=== PATIENT | female | born 1960 | race Caucasian/White ===

== ENCOUNTER 2017-01-03 17:59 | Inpatient (IN) | payer BC ==
[~2017-01-03 17:59] MED LIST: ISOVUE-370 76%-LOCM 1 ML ONE
--- NOTE | 2017-01-03 18:48 | CT ---
CT BRAIN WITHOUT CONTRAST 01/03/17 HISTORY: Headache. COMPARISON: None. FINDINGS: There is abnormal edema within the cerebellum with mass effect upon the fourth ventricle. There is mi ld hydrocephalus. There is abnormal sulcal edema to the bifrontal lobes and right parietal lobe. The calvarium appears to be intact. IMPRESSION: Large volume vasogenic edema within the right cerebellum with early downward transforaminal herniatio n of the cerebellar tonsils with early hydrocephalus. There is also abnormal subcortical edema within the bifrontal lobes and right parietal lobe concerning for metastatic disease. MRI of brain with and without contrast recommended after consultation with neurosurgery. Code [facility] notified of findings via telephone, 6:40 p.m. POS: DOROTHY
[2017-01-03 19:01] LABS: #Basophils 0.1 thou/uL (0.0-0.2); #Eosinphils 0.2 thou/uL (0.0-0.7); #Lymphocytes 1.9 thou/uL (1.20-3.40); #Monocytes 0.4 thou/uL (0.11-0.59); #Neutrophils 3.7 thou/uL (1.40-6.50); %Basophils 1.5 % (0.0-1.0); %Eosinophils 3.8 % (0.0-10.0); %Lymphocytes 30.7 % (21.0-51.0); %Monocytes 5.8 % (0.0-10.0); Hematocrit 47.5 % (36.0-47.0); Mean Platelet Volume 8.9 fL (7.4-10.4); Red Blood Cell (RBC) Count 4.89 mill/uL (4.20-5.40); White Blood Cell (WBC) Count 6.3 thou/uL (4.8-10.8)
[2017-01-03 19:16] LABS: Anion Gap 13 mmol/L (10-20); BUN (Urea Nitrogen) 12 mg/dL (9.8-20.1); Calc. Creatinine Clearance 0 mL/min (70-130); Calcium 9.3 mg/dL (7.8-10.44); Carbon Dioxide 23 mmol/L (22-29); Chloride 110 mmol/L (98-107); Estimated GFR-MDRD 63
[2017-01-03] MEDS ORDERED: Dexamethasone 10 MG/ML VIAL ONE (19:49)
[2017-01-03] MEDS ORDERED: Ketorolac Tromethamine 30 MG/ML VIAL ONE (19:49)
[2017-01-03] MEDS ORDERED: Metoclopramide HCl 10 MG/2 ML VIAL ONE (19:49)
[2017-01-03] MEDS ORDERED: diphenhydrAMINE 50 MG/ML VIAL ONE (19:49)
--- NOTE | 2017-01-03 20:40 | CT ---
CT CHEST WITH CONTRAST CT ABDOMEN WITH CONTRAST CT PELVIS WITH CONTRAST 01/03/17 HISTORY: Oncology evaluation. FINDINGS: There is a 1.9 x 1.8 cm spiculated mass in the right upper lobe. There are smaller satellite nodules in the right upper lobe measuring up to 5 mm. A total of 5 satellite nodules are present in the right upper lobe. There is pretracheal and right hilar adenopathy. Right hilar adenopathy measure up to 15 mm and pretr acheal lymph nodes measure up to 14 mm in short axis. Small prevascular lymph nodes are present. No c ontralateral hilar adenopathy is appreciated. No supraclavicular adenopathy is appreciated. Flash filling hemangioma within the right lobe of the liver. There is extensive submucosal edema thro ughout the colon suggesting colitis. The appendix is visualized and is normal. Aortoiliac contour is nonaneurysmal. No retroperitoneal dash nopathy. Punctate calculi within the small interlobar renal arteries. No definite collecting system calculi ar e appreciated. Small calcified granuloma over the right flank. No suspicious lytic or blastic lesions of the skeleton. IMPRESSION: 1. Right upper lobe spiculated mass indicative of malignancy measuring 1.9 x 1.8 x 3 cm with a t otal of at least five separate satellite nodules. There is ipsilateral right hilar and pretracheal ad enopathy without contralateral hilar adenopathy nor supraclavicular adenopathy. 2. Likely flash filling hemangioma within hepatic segment V although too small to fully characte rize on today's examination. 3. Diffuse colitis without evidence of perforation. 4. No evidence of metastatic disease in the abdomen or pelvis. 5. Left retroadrenal lymph node appears mildly prominent although only measures 6 mm short axis and retains normal ovoid shape. 6. Too small to characterize hypodensities hepatic segment II and VIII although likely cysts. Cl ose attention on followup imaging is recommended. POS: DOROTHY
[2017-01-03 21:10] LABS: Troponin I Less than 0.010 ng/mL (< 0.028)
[2017-01-03] MEDS ORDERED: Ondansetron HCl/PF 4 MG/2 ML Vial IVP PRN ×2 (21:16→21:23)
[2017-01-03] MEDS ORDERED: Acetaminophen 325 MG TAB PO PRN ×2 (21:16→21:23)
[2017-01-03] MEDS ORDERED: Ondansetron ODT 4 MG TAB SL PRN (21:16)
[2017-01-03] MEDS ORDERED: HYDROcodone/Acetaminophen 5/325 mg Tablet PO PRN ×2 (21:16)
[2017-01-03] MEDS ORDERED: Calcium Carbonate 500 MG ChewTAB PO PRN (21:23)
[2017-01-03] MEDS ORDERED: Dextrose 5% in Water 1,000 ML IV PRN (21:23)
[2017-01-03] MEDS ORDERED: hydrALAZINE 20 MG/ML VIAL SLOW IVP PRN (21:23)
[2017-01-03] MEDS ORDERED: HumaLOG 300 UNITS/3 ML VIAL SC PRN (21:23)
[2017-01-03] MEDS ORDERED: Dextrose 50% Abboject 50 ML SYRINGE SLOW IVP PRN (21:23)
[2017-01-03] MEDS ORDERED: Aspirin 325 MG TAB PO SCH (22:00)
[2017-01-03] MEDS: Metoprolol Tartrate 25 MG TAB PO SCH (22:29)
[2017-01-03 22:59] VITALS: BMI 26.2
--- NOTE | 2017-01-03 23:55 | CON ---
DATE OF CONSULTATION: 01/03/2017 HISTORY OF PRESENT ILLNESS: Patient is a 56-year-old female with a past medical history of hypertension and coronary artery disease with prior CABG who presents for evaluation of headaches x3 weeks. She describes headache as a pressure sensation, which are global and worse in the morning, a nd better throughout the day. She has been checking her blood pressure regularly and is noted that h er blood pressure was also been slightly elevated over the last several weeks. She denies any other significant symptoms other than headaches and elevated blood pressure. She denies vision changes, we akness, difficulty walking, confusion, slurred speech. She was evaluated by the emergency department this evening with a CT of the head, which was notable for vasogenic edema of right cerebellar region , right parietal lobe and bifrontal lobes, which is suspicious for metastatic disease. Patient denie s any prior cancer history. She does have a family history of lung cancer and sarcoma. She is a smo ker for approximately 30 years. PAST MEDICAL HISTORY: Coronary artery disease, hypertension. PAST SURGICAL HISTORY: CABG in 2016, ovarian cyst removal, section. SOCIAL HISTORY: Patient is a 1 pack per day smoker x30 years. She does not drink or use any drugs. She lives at home, is . ALLERGIES: Patient has no known drug allergies. REVIEW OF SYSTEMS: Per HPI. PHYSICAL EXAMINATION: VITAL SIGNS: BP is 174/92, pulse is 65, respiration rate is 18. She is 100% on room air, temperatur e is 98.3. CONSTITUTIONAL: No acute distress, comfortable. HEAD: Normocephalic, atraumatic. EYES: PERRLA. Extraocular movements intact. Sclerae white. ENT: Oral mucosa is pink and moist. Voice is normal. NECK: Nontender to palpation. Free active range of motion. No meningismus or nuchal rigidity. RESPIRATORY: She has a regular respiratory rate and no evidence of dyspnea. Clear breath sounds. CARDIOVASCULAR: She has a regular rate. No murmurs or rubs. MUSCULOSKELETAL: She has free active range of all extremities. Good muscle tone to bilateral upper and lower extremities. NEUROLOGIC: She is A&O x4. She has normal speech. She has normal cranial nerve exam. No limb atax ia. ASSESSMENT: CT head with vasogenic edema of the right cerebellar region, bifrontal regions and right parietal lobe, suspicious for metastatic disease. PLAN: Patient will be admitted to the Medicine Service for further oncology workup. We will consult on the case. We will plan to start the patient on Decadron 4 mg q.6. I have discussed this plan wi th Dr. Phan who is in agreement. We will order a brain MRI with and without contrast for further evaluation of suspected metastatic disease. Please reach out to the Neurosurgical Service for addit ional questions or concerns.
[2017-01-03] MEDS ORDERED: Dexamethasone 4 mg/ml Vial SLOW IVP SCH (23:59)
--- NOTE | 2017-01-04 01:06 | HP ---
CHIEF COMPLAINT: Headache and high blood pressure. HISTORY OF PRESENT ILLNESS: This is a 56-year-old pleasant lady who was apparently in her usual stat e of health, came into the hospital because she had headaches starting about 3 weeks back and associa nely high blood pressures with that. She started checking her blood pressures due to the headache and she found that it was consistently high. She came into the hospital where a CT scan of the head was done, which showed some vasogenic edema and brain mets. She has been admitted for further evaluatio n and treatment, otherwise she does not report any weakness and she has been healthy so far. No naus ea, no vomiting. No diarrhea, dysuria, or polyuria. No hematuria, no hematochezia, no vaginal disch arges. The patient is a smoker and had triple bypass one year ago. The patient's headache is descri bed as dull in nature, starts in the morning, relieved by activity intensities vary from 3-8/10. PAST MEDICAL HISTORY: Significant for coronary artery disease, status post CABG in 2016; hypertensio n; history of headaches. PAST SURGICAL HISTORY: CABG, , bilateral tubal ligation, ovarian cyst. MEDICATIONS: Please see MAR. ALLERGIES: No known drug allergies. SOCIAL HISTORY: Significant for tobacco abuse and no recreational drugs. Occasional alcohol use. FAMILY HISTORY: Mother of lung cancer. Father of liver cancer. REVIEW OF SYSTEMS: Significant for headache. There is no fever, no chills, no headache, no appetite , no hearing loss, no latencies. No cough, no chest pain, diarrhea, dysuria, or polyuria. No memory or mood changes. No neck pain. PHYSICAL EXAMINATION: VITAL SIGNS: Blood pressure is 174/92, afebrile, pulse is 80, breathing comfortably on room air. GENERAL: Patient is lying in bed, in no apparent distress right now. HEENT: Atraumatic, normocephalic. Pupils are equal, round, react to light. Extraocular movements a re intact. Mucous membranes are moist. NECK: Supple. No JVD. CHEST: Breath sounds heard. There are no rales or rhonchi. HEART: S1, S2. No murmurs or gallops. ABDOMEN: Soft. EXTREMITIES: No cyanosis, clubbing, or edema. Distal pulses present. NEUROLOGIC: Alert, awake, oriented. No cranial nerve deficits. No sensorimotor deficits. LABORATORY AND DIAGNOSTIC DATA: CBC: WBC count is 6.3, hemoglobin is 15, potassium 4, creatinine 0. 9. CT of head shows metastatic disease with vasogenic edema. ASSESSMENT AND PLAN: 1. Headache secondary to probably mass in the brain with vasogenic edema. Neurosurgery and Oncology have been consulted. IV Decadron, will be given 4 mg IV q.6 hours. We will do p.r.n. pain medicati ons to keep the patient comfortable and monitor the patient for any neuro findings. 2. Hypertension. We will continue metoprolol and do p.r.n. medications. 3. Coronary artery disease, status post coronary artery bypass graft, stable. 4. Tobacco abuse. The patient has been counseled. 5. Sequential compression devices for deep venous thrombosis prophylaxis. I will work with consulta nts further caring for the patient.
[2017-01-04] MEDS ORDERED: Dexamethasone 4 mg/ml Vial SLOW IVP SCH (02:00)
[2017-01-04 04:46] LABS: #Lymphocytes 0.4 thou/uL (1.20-3.40); #Neutrophils 5.6 thou/uL (1.40-6.50); %Basophils 0.2 % (0.0-1.0); %Eosinophils 0.4 % (0.0-10.0); %Monocytes 0.4 % (0.0-10.0); Hematocrit 42.7 % (36.0-47.0); Mean Platelet Volume 9.3 fL (7.4-10.4); Red Blood Cell (RBC) Count 4.43 mill/uL (4.20-5.40)
[2017-01-04 04:56] LABS: ALT (SGPT) 8 U/L (8-55); AST (SGOT) 12 U/L (5-34); Alkaline Phosphatase 119 U/L (40-150); Anion Gap 11 mmol/L (10-20); BUN (Urea Nitrogen) 13 mg/dL (9.8-20.1); Bilirubin, Total 0.2 mg/dL (0.2-1.2); Calc. Creatinine Clearance 94 mL/min (70-130); Calcium 8.8 mg/dL (7.8-10.44); Carbon Dioxide 20 mmol/L (22-29); Chloride 109 mmol/L (98-107); Estimated GFR-MDRD 78; Globulin 2.4 g/dL (2.4-3.5)
[2017-01-04] MEDS: Docusate 100 MG CAP PO SCH ×2 (08:08→20:32)
[2017-01-04] MEDS: Famotidine 20 MG TAB PO SCH ×2 (08:08→20:32)
[2017-01-04] MEDS: Metoprolol Tartrate 25 MG TAB PO SCH ×2 (08:09→20:32)
[2017-01-04 08:20] LABS: Bilirubin Negative (Negative); Blood, Urine Trace (Negative); Glucose, Urine (Dipstick) Negative (Negative); Ketone, Urine Negative (Negative); Nitrite Negative (Negative); Protein, Urine (Dipstick) Negative (Neg-Trace); Urobilinogen 0.2 mg/dL (0.2-1.0)
[2017-01-04 08:21] LABS: Bacteria/HPF None Seen HPF (None Seen); Hyaline Casts/LPF 0-3 HYALINE CAST LPF (0-3 Hyaline); RBC/HPF 0-3 HPF (0-3); Squamous Epithelial 0-3 HPF (0-3); WBC/HPF 0-3 HPF (0-3)
[2017-01-04 09:10] LABS: Yeast-All Forms None Seen HPF (None Seen)
[2017-01-04] MEDS: Dexamethasone 4 mg/ml Vial SLOW IVP SCH ×3 (12:03→23:40)
--- NOTE | 2017-01-04 12:14 | MRI ---
MRI BRAIN WITH AND WITHOUT IV CONTRAST: Date: 01/04/17 PROVIDED CLINICAL HISTORY: Abnormal head CT, headaches. FINDINGS: Comparison made with the CT examination performed 01/03/17. There is a rim-enhancing lesion present within the right cerebellar hemisphere measuring at least 3.4 x 2.4 cm in greatest transverse dimensions and about 1.9 cm in craniocaudal dimension. This is assoc iated with surrounding vasogenic edema. This is associated with mass effect, which partially effaces the fourth ventricle. There is no evidence for hydrocephalus. There are multiple rim-enhancing lesion s involving each cerebral hemisphere, largest on the right measuring about 1.0 cm involving the right parietal region and largest on the left measuring about 11.0 mm in the left parietal region. There i s mild vasogenic edema associated with these lesions. There is no evidence for intracranial hemorrhage. There is no shift of the midline structures. There is mild crowding of the foramen magnum suggesting early transforaminal herniation. Appropriate flow-voids are seen within intracranial vessels. The extracranial soft tissues and calvar ial marrow signal appears normal. There is no evidence for restricted diffusion. IMPRESSION: Multiple rim-enhancing lesions involving the cerebrum and cerebellum, compatible with metastatic dise ase. The largest lesion is within the right cerebellum and produces effacement of fourth ventricle wi thout hydrocephalus. POS: DOROTHY
--- NOTE | 2017-01-04 14:01 | CON ---
DATE OF CONSULTATION: 01/04/2017 REASON FOR CONSULTATION: Probable metastatic malignancy to brain. HISTORY OF PRESENT ILLNESS: The patient is a 56-year-old woman who presented to the emergency room w ith hypertension associated with progressively severe generalized headaches of about 3-4 weeks' durat ion. A CT scan of the brain in the emergency room showed evidence of brain metastasis with associate d vasogenic edema. She was admitted for further evaluation. She has been started on steroids and he adaches have improved. She is a smoker and has a history of coronary artery disease for which bypass was performed approximately one year ago. However, she has no respiratory complaints. I am asked t o see the patient to provide further management recommendations. ALLERGIES: None. MEDICATIONS: Hydrocodone as needed, famotidine, metoprolol, ondansetron, and aspirin on admission. MEDICAL ILLNESSES: There is a history of coronary artery disease for which she underwent bypass surg timmy in the past. There is a history of hypertension. PAST SURGICAL HISTORY: She has undergone coronary artery bypass, section, tubal ligation, a n ovarian cyst surgery. SOCIAL HISTORY: She has smoked for many years and has an approximate [id number] history of smoking . She does not drink excessively. FAMILY HISTORY: Her mother of lung cancer. Father of liver cancer, the details are unclea r. REVIEW OF SYSTEMS: Except as mentioned before in the history of present illness, she denies signific ant cardiopulmonary, GI, , musculoskeletal, or neurological complaints. PHYSICAL EXAMINATION: VITAL SIGNS: Temperature 98.3, pulse 60, respirations 18, blood pressure 101/47. GENERAL: The patient is a well-developed and well-nourished woman, in no acute distress. She is leonid rt, oriented, and cooperative. She is appropriate in conversation. HEENT: The extraocular movements are intact. Pupils equal, round, and reactive to light. NECK: Supple. LUNGS: Clear. CARDIOVASCULAR: Regular rate and rhythm without murmur, rub, gallop or click. ABDOMEN: No tenderness, organomegaly, masses, bruits or ascites. EXTREMITIES: No clubbing, cyanosis or edema. SKIN: Normal. LYMPH: No adenopathy. MUSCULOSKELETAL: No active arthritis. NEUROLOGIC: No focal findings. Cranial nerves II through XII are grossly intact. LABORATORY DATA: White blood cell count 6.0, hemoglobin 14.1, and platelet count 193,000. Chemistri es show normal electrolytes and a creatinine of 0.91. Liver function studies are normal. Calcium is normal at 8.8 with albumin 3.6. IMAGING: CT scan of the brain without contrast shows a large volume of vasogenic edema within the ri ght cerebellum with early transforaminal herniation and early hydrocephalus. There appears to be sub cortical edema within the bilateral frontal lobes as well. The findings were typical for metastatic malignancy. CT scan of the chest, abdomen, and pelvis shows a 1.9 x 1.8 cm spiculated mass in the ri ght upper lobe with smaller satellite nodules within the right upper lobe as well. There is pretrach eal and right hilar adenopathy measuring up to 15 mm. There is a hemangioma within the right lobe of the liver without metastatic disease. The visualized skeleton is negative for lytic or blastic lesi ons. IMPRESSION: Metastatic bronchogenic carcinoma involving the brain. RECOMMENDATIONS: I discussed the findings at length with the patient and emphasized the imaging find ings, almost certainly represents metastatic malignancy with the primary being lung. I discussed hossein roids as initial therapy for the headaches secondary to increased intracranial pressure. We discusse d and a definitive diagnosis might be made. The patient has been seen in consultation by both Neuros urgery and pulmonary with an MRI of the brain scheduled for today. I will defer at this time to Neur osurgery and pulmonary regarding definitive diagnosis. If the neurosurgical procedure is not warrant ed, either fiberoptic bronchoscopy or CT guided biopsy of the lung would be appropriate for possible diagnosis. Finally, Radiation Oncology should be consulted tomorrow for the input. Thanks very much for allowing me to provide my recommendations.
--- NOTE | 2017-01-04 16:18 | PDOC.PN ---
- Subjective Encounter Start Date: 01/04/17 Encounter Start Time: 16:16 Patient seen and examined. No new complaints. No overnight events - Objective MAR Reviewed: Yes Vital Signs & Weight: Vital Signs (12 hours) Temp Pulse Resp BP Pulse Ox 01/04/17 15:33 98.8 F 61 20 139/53 L 92 L 01/04/17 11:38 98.6 F 56 L 18 128/63 95 01/04/17 08:00 98.3 F 60 18 94 L 01/04/17 07:06 98.3 F 60 18 101/47 L 94 L I&O: 01/03/17 01/04/17 01/05/17 06:59 06:59 06:59 Intake Total 720 Output Total 600 Balance 120 Result Diagrams: 01/04/17 04:09 01/04/17 04:09 Additional Labs: Accuchecks 01/04/17 01/03/17 10:18 22:23 POC Glucose 153 H 162 H Phys Exam - Physical Examination Constitutional: NAD HEENT: PERRLA Neck: no nodes, no JVD Respiratory: no rales Cardiovascular: no significant murmur Gastrointestinal: no distention Musculoskeletal: pulses present Neurological: moves all 4 limbs Psychiatric: A&O x 3 Dx/Plan (1) Lung mass Code(s): R91.8 - OTHER NONSPECIFIC ABNORMAL FINDING OF LUNG FIELD Status: Acute (2) Brain metastases Code(s): C79.31 - SECONDARY MALIGNANT NEOPLASM OF BRAIN Status: Acute (3) CAD (coronary artery disease) Code(s): I25.10 - ATHSCL HEART DISEASE OF [place] CORONARY ARTERY W/O ANG PCTRS Status: Acute (4) HTN (hypertension) Code(s): I10 - ESSENTIAL (PRIMARY) HYPERTENSION Status: Acute (5) Tobacco use Code(s): Z72.0 - TOBACCO USE Status: Acute - Plan * cont current mx * f/u nsx and oncology plan
[2017-01-04] MEDS ORDERED: Lorazepam 2 MG/ML VIAL SLOW IVP PRN (17:18)
[2017-01-04] MEDS: HYDROcodone/Acetaminophen 5/325 mg Tablet PO PRN ×2 (17:24→23:43)
[2017-01-05] MEDS: Dexamethasone 4 mg/ml Vial SLOW IVP SCH ×3 (05:57→17:55)
[2017-01-05] MEDS: Metoprolol Tartrate 25 MG TAB PO SCH ×2 (08:53→20:57)
[2017-01-05] MEDS: Famotidine 20 MG TAB PO SCH ×2 (08:53→20:56)
[2017-01-05] MEDS: Docusate 100 MG CAP PO SCH ×2 (08:53→20:56)
[2017-01-05] MEDS ORDERED: FLU VACC QS2017-18 36 mo. & older 0.5 ML SYRINGE IM ONE (09:00)
--- NOTE | 2017-01-05 10:50 | CON ---
DATE OF CONSULTATION: 01/05/2017 REASON FOR CONSULTATION: Lung mass. HISTORY OF PRESENT ILLNESS: This is a 56-year-old who came to the hospital on the with intracta ble headaches. She had a CT scan followed by an MRI showing a large cerebral mass with ventricular c ompression from the right side. She also has a 2 cm right upper lobe spiculated lung mass and very q uestionable right peritracheal adenopathy. She has a 60-[id number]-qsdq history of smoking and continues t o smoke about 1 pack per day. PAST MEDICAL HISTORY: 1. Coronary artery disease, requiring bypass surgery in 2016. 2. Hypertension. PAST SURGICAL HISTORY: 1. CABG. 2. . 3. Bilateral tubal ligation. 4. Ovarian cyst surgery. MEDICATIONS PRIOR TO ADMISSION: Trazodone 100 mg nightly; buspirone 7.5 mg b.i.d.; lisinopril 10 mg daily; butalbital, acetaminophen and caffeine 1 tablet as needed; Lipitor 40 mg nightly; aspirin 325 mg daily; Protonix 40 mg daily and metoprolol 12.5 mg b.i.d. SOCIAL HISTORY: Reported 1 pack per day history of smoking for 40 years. Does not consume alcohol. Does not use illicit drugs. REVIEW OF SYSTEMS: She has had headaches, but no longer since she started steroids. She has had no fever, chills, nausea, vomiting, chest pain, hemoptysis, hematemesis, melena, hematochezia, hematuria or dysuria. PHYSICAL EXAMINATION: VITAL SIGNS: Temperature is 98.1, pulse 76, respirations 16, O2 sat 94% and blood pressure 134/64. GENERAL: She is a healthy appearing female in no acute distress. HEENT: Pupils react. Sclerae are icteric. Oropharynx is clear. NECK: Without adenopathy or JVD. LUNGS: Clear to auscultation without wheezing. CARDIAC: Regular without murmur. ABDOMEN: Soft and nontender. EXTREMITIES: No clubbing, cyanosis or edema. NEUROLOGIC: Shows no focal weakness or sensory deficits. LABORATORY DATA: White blood cell count 6, hematocrit 42.7 and platelet count 193. Sodium 137, pota ssium 3.3, chloride 109, CO2 of 20, BUN 13.0, creatinine 0.7 and glucose 143. IMAGING DATA: I reviewed the CT of her chest, CT of her brain and her MRI of the brain. ASSESSMENT: 1. Right upper lobe bronchogenic lung cancer with probable metastasis to the brain. 2. Intractable headache secondary to large cerebral brain mass. RECOMMENDATIONS: I have spoken with Dr. Bernal, Interventional Radiology. I think the best way to bi opsy the lung mass would be to do a CT needle biopsy. This carries a somewhat heightened risk due to the patient being on aspirin recently. She has not had any aspirin in the last 4 days. I believe C T needle biopsy is the best way to biopsy this versus bronchoscopy as the lesion is peripheral and ca nnot be seen with plain radiography. I did speak with Dr. Ngo from the [facility]. I recommended they go ahead and consult Radi ation Oncology as the patient will likely need to have brain radiation started fairly quickly. I discussed all aspects of the care with the patient and her .
--- NOTE | 2017-01-05 13:02 | PDOC.PN ---
- Subjective Encounter Start Date: 01/05/17 Encounter Start Time: 08:35 -: old records requested/rev Pt seen and examined, chart reviewed in its entirety. This is my first visit with this patient. Headache, CT with ring enhancing lesions, CT chest with RUL spiculated mass with sentinel masses. Admitted for workup and pain control. Pt wanting to go home, was seen by Neurosurg and started on decadron, seen by onc (Benedicto) and recommended RadOnc consult today. Pulm consult pending at time of visit, but was seen before this note:recommended CT guided biopsy and has arranged for tomorrow. No F/C, no N/V/D/C, no CP or SOb, no headache now, much better 10 point ROS performed and all systems neg x as per HPI - Objective Resuscitation Status: full MAR Reviewed: Yes Vital Signs & Weight: Vital Signs (12 hours) Temp Pulse Resp BP Pulse Ox 01/05/17 12:00 97.4 F L 62 16 151/72 H 01/05/17 08:00 98.1 F 76 16 94 L 01/05/17 07:49 98.1 F 54 L 18 134/64 01/05/17 04:53 98.5 F 76 16 119/51 L 94 L I&O: 01/04/17 01/05/17 01/06/17 06:59 06:59 06:59 Intake Total 720 720 Output Total 600 Balance 120 720 Result Diagrams: 01/04/17 04:09 01/04/17 04:09 Additional Labs: Accuchecks 01/05/17 01/04/17 05:44 20:00 POC Glucose 120 H 163 H Radiology Reviewed by me: Yes EKG Reviewed by me: Yes Phys Exam - Physical Examination Constitutional: NAD HEENT: PERRLA, moist MMs, sclera anicteric, oral pharynx no lesions Neck: no nodes, no JVD, supple, full ROM Respiratory: no wheezing, no rales, no rhonchi, clear to auscultation bilateral Cardiovascular: RRR, no significant murmur, no rub Gastrointestinal: soft, non-tender, no distention, positive bowel sounds Musculoskeletal: no edema, pulses present Neurological: non-focal, normal sensation, moves all 4 limbs Lymphatic: no nodes Psychiatric: normal affect, A&O x 3 Skin: no rash, normal turgor, cap refill <2 seconds Dx/Plan (1) Brain metastases Code(s): C79.31 - SECONDARY MALIGNANT NEOPLASM OF BRAIN Status: Acute (2) CAD (coronary artery disease) Code(s): I25.10 - ATHSCL HEART DISEASE OF [place] CORONARY ARTERY W/O ANG PCTRS Status: Chronic Qualifiers: Coronary Disease-Associated Artery/Lesion type: unspecified vessel or lesion type [place] vs. transplanted heart: [place] heart Associated angina: without angina Qualified Code(s): I25.10 - Atherosclerotic heart disease of [place] coronary artery without angina pectoris (3) HTN (hypertension) Code(s): I10 - ESSENTIAL (PRIMARY) HYPERTENSION Status: Acute Qualifiers: Hypertension type: essential hypertension Qualified Code(s): I10 - Essential (primary) hypertension (4) Lung mass Code(s): R91.8 - OTHER NONSPECIFIC ABNORMAL FINDING OF LUNG FIELD Status: Acute Comment: RUL spiculated mass. CT guided biopsy in the AM (5) Tobacco use Code(s): Z72.0 - TOBACCO USE Status: Chronic - Plan cont current plan of care, plan discussed w/ family, out of bed/ambulate * .
[2017-01-05] MEDS: HYDROcodone/Acetaminophen 5/325 mg Tablet PO PRN ×2 (17:57→22:08)
[2017-01-06] MEDS: Dexamethasone 4 mg/ml Vial SLOW IVP SCH ×3 (00:21→12:23)
[2017-01-06 07:23] LABS: PTT 23.3 SEC (22.9-36.1); Prothrombin Time 13.4 SEC (12.0-14.7)
[2017-01-06] MEDS: Famotidine 20 MG TAB PO SCH (07:35)
[2017-01-06] MEDS: Docusate 100 MG CAP PO SCH (07:35)
[2017-01-06] MEDS: Metoprolol Tartrate 25 MG TAB PO SCH (07:35)
[2017-01-06 08:01] VITALS: BP 153/68; TEMP 97.8
--- NOTE | 2017-01-06 09:43 | PRG ---
DATE OF SERVICE: 01/06/2017 SUBJECTIVE: Ms. Baig is scheduled for a percutaneous biopsy of her right upper lobe mass today. S he is also scheduled to undergo radiation therapy of her head tomorrow. She feels fine right now, has no acute complaints. PHYSICAL EXAMINATION: VITAL SIGNS: Temperature 97.8, pulse 61, respirations 18, O2 sat 96%, blood pressure 153/68. HEENT: Unremarkable. NECK: No JVD. CHEST: Clear to auscultation. CARDIAC: S1 and S2 regular. ABDOMEN: Soft. EXTREMITIES: No edema. ASSESSMENT: 1. Right upper lobe lesion - likely lung cancer. 2. Metastasis to the brain. PLAN: 1. Percutaneous biopsy is planned today. I have gone over the risk of the procedure with the patien t including bleeding, infection, approximate 10% chance of pneumothorax. She is agreeable to proceed . 2. She can probably go home after the biopsy today as I think results will not be available until xt Thursday at the earliest. Further followup with the Oncology group.
[2017-01-06] MEDS ORDERED: Midazolam HCl 2 mg/2 ml Vial ONE (10:11)
[2017-01-06] MEDS ORDERED: Sodium Bicarbonate 2.4 MEQ/5 ML ONE (10:11)
[2017-01-06] MEDS ORDERED: Fentanyl 100 MCG/2 ML VIAL ONE (10:12)
[2017-01-06] MEDS: HYDROcodone/Acetaminophen 5/325 mg Tablet PO PRN (12:23)
--- NOTE | 2017-01-06 14:31 | RAD ---
INSPIRATORY AND EXPIRATORY PA CHEST RADIOGRAPH: Date: 01-06-17 History: Patient post right upper lobe lung nodule biopsy. Comparison: 01-16-16 FINDINGS: Post-surgical changes related to CABG are noted. The right subclavian central venous catheter has bee n removed. The bibasilar pleural and parenchymal lung changes have resolved. The right upper lobe pul monary nodule seen on CT examination of the right upper lobe is present on this exam. Minimal adjacen t hazy density is seen which may be related to a small amount of hemorrhage due to recent biopsy. No pneumothorax is visualized on this examination. There is no pleural effusion present. No other interv al change. IMPRESSION: Right upper lobe pulmonary nodule without evidence of a pneumothorax. POS: SARAH
--- NOTE | 2017-01-06 14:45 | CT ---
CT GUIDED PERCUTANEOUS BIOPSY OF A RIGHT UPPER LOBE NODULE: DATE: 01/06/17. HISTORY: Right upper lobe spiculated pulmonary nodule with metastatic brain lesions. Biopsy was requested. TECHNIQUE: After informed consent was obtained, the patient was placed on the CT scan table in the supine positi on. Grid localizer was placed overlying the right upper chest and axial noncontrasted CT images were obtained through the upper chest. An area was marked and meticulously prepped and draped in the usu al fashion. The skin and subcutaneous tissues were infiltrated with buffered 1% Lidocaine for local anesthesia. A small skin incision was made. A 19-gauge guide needle was advanced followed by [address] images. This was repeated until the tip of the needle was placed just within the right upper l obe pulmonary nodule. Final position was confirmed with axial noncontrasted CT images. A total of 2 20-gauge core needle b iopsy specimens were obtained utilizing coaxial technique. Initial specimen demonstrated neoplastic cells as reported preliminarily by the pathologist. Final pathology is currently pending. The needl e was removed, and hemostasis was achieved with direct pressure. A post-biopsy noncontrasted CT scan was obtained through the chest which demonstrates no evidence of a pneumothorax. Adjacent to the pulmonary nodule, there is patchy increased density most compatible with hemorrhage related to recent biopsy. No hematoma is seen in the subcutaneous soft tissues at bi opsy site. The patient tolerated the procedure well and without immediate complication. IMPRESSION: 1. Technically successful CT-guided percutaneous biopsy of a right upper lobe pulmonary nodule. A t otal of two 20-gauge core needle biopsy specimens were obtained. Preliminary pathology results indic ate the presence of neoplastic cells. Final pathology report is pending at this time. 2. Small amount of hemorrhage adjacent to the pulmonary nodule on post-biopsy images. No pneumothor ax is present. POS: [facility]
--- NOTE | 2017-01-06 18:14 | CON ---
DATE OF CONSULTATION: 01/06/2017 REASON FOR CONSULTATION: Ms. 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 HISTORY OF PRESENT ILLNESS: Ms. Baig states that for the past 3 weeks, she has been having headach es. This was mostly in the morning and would get better through the day. The headaches are mostly a pressure sensation. She was having no nausea or vomiting or neurological symptoms such as weakness or numbness. She thought this might be related to her blood pressure. She saw her family physician who recommended that she be evaluated in the emergency room. There she had a CT scan of the head [facility] ch showed multiple lesions in the brain and vasogenic edema which was worrisome for metastasis. She was admitted to the hospital for further workup and evaluation. She was started on Decadron with muc h improvement in her headaches. An MRI of the brain was performed which revealed numerous lesions in the cerebrum and the cerebellum. The largest is in the cerebellum with vasogenic edema and was caus ing some compression on the fourth ventricle. There was no evidence of hydrocephalus. CT of the [facility] st, abdomen, and pelvis showed an approximate 2 cm right upper lobe lung mass. There were also satel lite nodules in the right upper lobe. There was evidence of mediastinal adenopathy. There was no ev idence of liver metastasis or other lung metastasis. She has seen Dr. Diane in Medical Oncology wh o emphasize the importance of obtaining tissue diagnosis. She has also seen Dr. Phan in Neurosur [facility] and Dr. Smith in Pulmonology. Neurosurgical intervention is not planned at this time. She is scheduled to undergo a CT guided biopsy of the lung mass later today. I was asked to see her to dis cuss her options with radiation. Again, she states that her headaches are much better on the Decadron. Her breathing is good. She de nies any orthopnea. She has no recent weight loss and voices no other complaints. PAST MEDICAL HISTORY: 1. Coronary artery disease status post CABG in 2016. 2. Hypertension. 3. Status post . 4. Status post bilateral tubal ligation. 5. Status post ovarian cyst surgery. MEDICATIONS: Dexamethasone, Protonix, hydrocodone p.r.n., metoprolol, and Zofran p.r.n. At home, darlin costello was also taking trazodone and buspirone, and lisinopril and Lipitor. ALLERGIES: No known medical allergies. SOCIAL HISTORY: The patient does live in [facility] with her /significant other. She has smoked about 1 pack per day for approximately 40 years. She has no alcohol use or drug use. She wor ks at [employer]. FAMILY HISTORY: Her father from sarcoma at age 71. Her mother from lung cancer at age 81. There is no other family history of malignancy. REVIEW OF SYSTEMS: Twelve system review of systems is otherwise negative. PHYSICAL EXAMINATION: VITAL SIGNS: Height 5 feet 6 inches, weight 162 pounds, blood pressure is 129/66, pulse is 55, respi rations are 16, temperature 97.5, O2 saturation is 95%. CONSTITUTIONAL: She is alert and oriented and in no apparent distress. She is well-developed and we ll-nourished. The Karnofsky performance status is 90%. HEENT: Pupils equal, round, and reactive to light. Extraocular movements are intact. ENT: Oral ca vity and oropharynx normal without lesion or erythema. Palate elevates symmetrically. Gingiva is in tact. NECK: Supple, without cervical or supraclavicular adenopathy. No thyromegaly. Larynx is midline. LUNGS: Breathing nonlabored. Clear to auscultation and percussion. CARDIOVASCULAR: Heart, regular rate and rhythm without murmur. EXTREMITIES: No lower extremity edema. Radial and pedal pulses are good. BACK: Without tenderness on fist percussion of her spine. LYMPHATIC: No axillary or inguinal adenopathy. ABDOMEN: Soft, nontender, nondistended, without mass or hepatosplenomegaly. Liver percusses to norm al size. SKIN: Without rash or purpura. NEUROLOGIC: Cranial nerves II-XII grossly intact. Motor strength is 5/5 in both upper and lower ext remities in all muscle groups tested. Reflexes are normal and symmetrical. Gait is normal. She is able to tandem walk. RADIOLOGIC: MRI of the brain as well as CT scan of the chest, abdomen, and pelvis were all personall y reviewed and are discussed in HPI. Again, she has multiple lesions in the brain. The largest is i n the right side of the cerebellum with surrounding vasogenic edema and some compression on the fourt h ventricle. LABORATORY DATA: Chemistry group showed potassium of 3.3. Otherwise, electrolytes were normal. Cre atinine was normal and liver function tests were normal. CBC revealed a white blood cell count of 60 00 with a hemoglobin of 14.1, hematocrit of 42.7, platelet count 193,000. ASSESSMENT: Ms. Baig is a 56-year-old female with a clinical stage IV, T3 N2 M1 carcinoma of the l linden. I think this is likely going to be a nonsmall cell carcinoma of the lung. She is scheduled to have a CT guided biopsy later today. PLAN: It is imperative that we obtain tissue diagnosis. I agree with the CT guided biopsy that is s cheduled for today. Neurosurgery has seen the patient and is not planning any neurosurgical interven tion at the present. I had a long discussion with Ms. Baig regarding her likely diagnosis, prognos is, prognostic factors, and treatment options. She became very emotional as I explained that she had stage IV disease which is likely not curative. I explained that this is likely going to be a nonsma ll cell carcinoma and explained the importance to her of getting tissue diagnosis as it may help dete rmine systemic therapy later. We then discussed how to manage her brain metastasis. She has too num erous of lesions and the lesion in the cerebellum is too large at the present time for stereotactic r adiosurgery. I would recommend that she be treated with whole-brain radiation therapy. The logistic s of whole-brain radiation therapy as well as the benefits and risks of treatment were discussed. Si de effects would include but not be limited to skin reaction, fatigue, lower blood counts, hair loss which may be permanent, headache, nausea, vomiting, and small risk of damage to her brain which might affect memory or mentation. We discussed this latter issue in depth. I did recommend that she cons ider taking Namenda while she is on this treatment as it has been shown to reduce some of the cogniti ve effects of radiation. We would then after treatment follow her brain with serial MRIs. If she schwartz s an excellent response, she could potentially become a candidate for radiosurgery later, but I think this will likely not occur. Nevertheless, we will monitor for that. I expect that Dr. Diane will recommend systemic chemotherapy after her radiation is completed. This treatment can be done as an outpatient. She can be discharged on Decadron and I would place her on at least 4 mg t.i.d. I would also discharge her on a stomach acid medicine such as Pepcid or Protonix. We will taper the Decadro n as clinically allowed as an outpatient. We can plan for the simulation either later today or tomor row depending on how she does with a CT guided biopsy. Again, she was very emotional and we will wor k with her. I think we can safely begin the radiation therapy after the CT guided biopsy is obtained as we can always repeat the biopsy if tissue diagnoses fail. Because of the potential obstruction o f the fourth ventricle, I think we should start therapy fairly timely. Thank you for this interesting consultation.
--- NOTE | 2017-01-27 12:58 | EKG ---
Test Reason : HTN Blood Pressure : / mmHG Vent. Rate : 063 BPM Atrial Rate : 063 BPM P-R Int : 160 ms QRS Dur : 094 ms QT Int : 430 ms P-R-T Axes : 050 001 062 degrees QTc Int : 440 ms Sinus rhythm with frequent Premature ventricular complexes Possible Inferior infarct , age undetermined Abnormal ECG Confirmed by DES BURDICK ([id number]), newspaper or periodical editor BELINDA TENA ([id number]) on 01/27/2017 12:58:32 PM Referred By: Confirmed By:DES BURDICK
== END 2017-01-06 13:49 | disposition home or self-care (01) | DRG 180 ==
LOC: ERS 17:59 → IMCU/EMU 21:12
PROVIDERS: ADMIT Internal Medicine; ATTEND Internal Medicine
PROC: 0BBC3ZX Excision of Right Upper Lung Lobe, Percutaneous Approach, Diagnostic (ICD-10-PCS; principal; 2017-01-06)
DX: C34.11 Malignant neoplasm of upper lobe, right bronchus or lung (principal); G93.6 Cerebral edema; C79.31 Secondary malignant neoplasm of brain; I10 Essential (primary) hypertension; I25.10 Atherosclerotic heart disease of native coronary artery without angina pectoris; K21.9 Gastro-esophageal reflux disease without esophagitis; E78.5 Hyperlipidemia, unspecified; Z95.1 Presence of aortocoronary bypass graft; F17.210 Nicotine dependence, cigarettes, uncomplicated
CPT/HCPCS: 32405; 36415; 36416; 70450; 70553; 71010; 71260; 74177; 77012; 80048; 80053; 81001; 84484; 85025; 85610; 85730; 88305; 88313; 88341; 88342; 93005; 96365; 96375; 99406; J1100; J1200; J1885; J2250; J2765; J3010

== ENCOUNTER 2017-03-12 16:00 | Outpatient (CLI) | payer BC ==
--- NOTE | 2017-03-12 18:47 | MRI ---
MRI BRAIN WITH AND WITHOUT CONTRAST: DATE: 03/12/17 HISTORY: 56-year-old female with multiple brain metastases due to lung cancer (primary malignancy of upper lob e of right lung), status post whole brain irradiation therapy. Followup . COMPARISON: 01/04/17. TECHNIQUE: Multiple sequences obtained in axial, sagittal, and coronal planes; pre and post IV injection of gado linium-based contrast agent: 13 mL of Multihance. FINDINGS: There are multiple intra-axial, rim-enhancing brain metastases. The largest one, at the superior aspe ct of the right cerebellar hemisphere, abutting the right tentorium cerebelli, with previous dimensio ns of approximately 3.4 x 2.4 x 1.9 cm, has decreased in size significantly, currently measuring appr oximately 2.5 x 1.5 x 1 cm. It still has surrounding vasogenic edema, but this has improved. Previous ly, it was causing significant mass effect, with the vasogenic edema causing effacement of the fourth ventricle. Now, that has resolved; and currently, the fourth, third, and lateral ventricles have nor mal size and configuration. There are at least 7 supratentorial metastatic brain lesions, six on the right and one on the left. Three of these have become small enough that they are punctate foci of enh ancement (no central necrosis visible), on the order of 2 mm in size each. The one in the left pariet al lobe currently measures approximately 1 x 1 x 1 cm, whereas it was previously approximately 1 x 1. 1 x 1.2 cm. A 1 cm lesion in the right peripheral parietal lobe was previously 1 cm, and is currently 0.8 cm. Many of these have small halos of surrounding vasogenic edema, which have improved since the previous MRI. In addition to this, there are moderate chronic ischemic white matter changes of the brain and cara, greater than previously, probably representing postradiation changes. There is also another new finding of an extensive left mastoid effusion. There is no evidence of recent or remote intra-axial hemorrhage. No restricted diffusion. No mass effect, midline shift, or extra-axial fluid collection. No new metastatic lesions are identified. IMPRESSION: 1. Overall interval improvement in the multiple brain metastases. 2. The largest of these in the right cerebellar hemisphere has significantly decreased in size, with improvement in its associated edema and mass effect, no longer effacing the fourth ventricle. 3. Numerous supratentorial cerebral brain metastases are smaller than this, and they have also a ll decreased in size. There is one lesion in the left cerebrum, while the rest are in the right cereb rum. 4. Advancement of chronic ischemic white matter changes, especially in the cara, representing ac celerated small vessel disease secondary to irradiation. 5. New left mastoid effusion. 6. Currently no significant mass effect. SOCORRO Otoole POS: [facility]
== END 2017-03-12 16:01 ==
LOC: MRI 16:00
PROVIDERS: ATTEND Radiology Radiation Oncology
DX: C79.31 Secondary malignant neoplasm of brain (principal); C34.11 Malignant neoplasm of upper lobe, right bronchus or lung; G93.6 Cerebral edema; H74.8X2 Other specified disorders of left middle ear and mastoid; Z92.3 Personal history of irradiation
CPT/HCPCS: 70553

== ENCOUNTER 2017-04-22 09:12 | Outpatient (CLI) | payer BC | END 2017-04-22 09:13 | disposition home or self-care (01) | LOC: BICCT 09:12 | PROVIDERS: ATTEND Internal Medicine Hematology & Oncology | DX: C34.90 Malignant neoplasm of unspecified part of unspecified bronchus or lung (principal); R91.8 Other nonspecific abnormal finding of lung field | CPT/HCPCS: 71260 ==

== ENCOUNTER 2017-06-08 15:30 | Outpatient (CLI) | payer BC ==
--- NOTE | 2017-06-09 09:44 | MRI ---
MRI BRAIN WITH AND WITHOUT CONTRAST: DATE: 06/08/17. HISTORY: A 56-year-old female with brain metastasis from lung cancer. Status post whole brain radiation. Fol lowup. COMPARISON: 03/12/17. TECHNIQUE: Multiple sequences obtained in axial, sagittal, and coronal planes; pre and post IV injection of gado linium-based contrast agent: 13 mL of MultiHance. FINDINGS: Again noted are the intraaxial enhancing brain metastatic lesions surrounded by vasogenic edema, as p reviously described. The largest one, in the superior aspect of the right cerebellar hemisphere, previously measured appro ximately 2.5 x 1.5 x 1 cm. The shape and pattern of enhancement have slightly changed (now with a gr eater degree of central enhancement rather than the rim enhancement demonstrated previously), but the overall size has not significantly changed. The degree of surrounding vasogenic edema has slightly worsened, and there is now a return of slight distortion of the 4th ventricle. The previously demonstrated 1 x 1 x 1 cm rim-enhancing left parietal lobe intraaxial lesion is unchan ged in size (image 126 of 192, series 8), but now has a greater degree of slight surrounding vasogeni c edema. In the right peripheral parietal lobe, a previously 0.8 x 0.8 x 0.8 cm rim enhancing lesion has now b ecome slightly larger, 1.1 x 1.2 x 1.2 cm (image 140 of 192, series 8; image 125 of 170, series 100). This also now has a greater degree of surrounding vasogenic edema. Some of the other ones have become slightly smaller now compared to previous. For example, in the warren perior aspect of the right occipital lobe, there was a previously approximately 0.6 x 0.6 x 0.7 cm le sue, which currently measures 0.5 x 0.4 x 0.5 cm (image 103 of 192, series 8; image 97 of 140, serie s 101). As previously noted, there are 6 total supratentorial metastatic lesions: 6 in the right cerebral hem isphere, and 1 in the left cerebral hemisphere. No mass effect or midline shift. No extraaxial fluid collection. No obstructive hydrocephalus. Again noted are the moderate chronic ischemic white matter changes, probably accelerated due to the w hole brain irradiation. The previously demonstrated large left mastoid effusion has become larger now. There is now a new sm aller right mastoid effusion. IMPRESSION: 1. Mixed response to therapy. While some of the metastatic brain lesions have become smaller, other s have increased in size, while others are stable. 2. The degree of vasogenic edema around the right cerebellar lesion, the right upper parietal lesion , and the left upper parietal lesion, has worsened. 3. Worsening of bilateral mastoid effusions. 4. Accelerated chronic ischemic white matter changes are stable. SOCORRO Otoole POS: [facility]
== END 2017-06-08 15:31 | disposition home or self-care (01) ==
LOC: MRI 15:30
PROVIDERS: ATTEND Radiology Radiation Oncology
DX: C34.11 Malignant neoplasm of upper lobe, right bronchus or lung (principal); C79.31 Secondary malignant neoplasm of brain; G93.89 Other specified disorders of brain
CPT/HCPCS: 70553

== ENCOUNTER 2017-08-10 15:51 | Outpatient (CLI) | payer BC ==
--- NOTE | 2017-08-10 17:43 | MRI ---
BRAIN MRI WITH AND WITHOUT CONTRAST: 08/10/2017 HISTORY: Lung cancer with brain metastatic disease, status post radiation therapy. COMPARISON: 06/08/2017 TECHNIQUE: Multiplanar, multisequence MR imaging of the brain is provided with and without contrast. FINDINGS: The diffusion weighted imaging demonstrates no evidence for acute infarction, and the axial gradient echo imaging demonstrates no evidence for intracranial hemorrhage. Bilateral mastoid effusions are noted, left more prominent than right, unchanged. There is extensive periventricular deep and subcortical white matter T2 and FLAIR hyperintensity, pro gressed in the centrum semiovale bilaterally. Post contrast imaging demonstrates a lobulated, enhancing intraaxial mass lesion within the posterior aspect of the right cerebellar hemisphere, measuring 2.8 cm in transverse dimension, slightly enlarg ed since the prior exam. Numerous subcentimeter lesions are seen within the inferior aspect of the r ight cerebellar hemisphere. There are at least six such lesions present, some of which are new and s ome of which have enlarged. There is edema within the right cerebellar hemisphere, extending toward the midline, posterior to the fourth ventricle, which has increased since the prior examination. The re is mild mass effect on the fourth ventricle, posteriorly and laterally, on the right, new. No ventriculomegaly is seen at this time. There is a punctate intraaxial lesion within the left frontal lobe on axial image 131, measuring 2-3 mm, which appears new when compared to the prior exam. There is a lesion within the left temporal lo be, measuring 5 mm, on image 83, which has enlarged since the prior examination. There is a medial l eft occipital lesion on image 67, measuring 3 mm, which appears new. There is a small left posterior frontal parietal region on image 154, measuring 4 mm, new. There is a 1.3 cm rim enhancing lesion on image 130, within the posterolateral left parietal lobe, in creased from 1 cm when compared to the prior exam. There is a punctate lesion near the vertex, within the right frontal lobe, on image 164, slightly enl arged. There is a rim enhancing posterolateral right frontoparietal region lesion, measuring 1.5 cm, enlarged since the prior exam. Punctate lesion seen on image 135, within the posterior right fronta l lobe, has slightly enlarged. There is a new small medial right occipital lesion, measuring 5-6 mm, on image 124. There is a lesion within the periventricular white matter, medial to the right atrium , on image 77, measuring 8 mm, slightly more prominent than on the prior exam. Arterial flow voids at the axial level of the skull base appear grossly unremarkable on the T2 weight ed imaging. IMPRESSION: Interval progression of intracranial metastatic disease. This includes lesions that have grown since the prior examination and lesions that are new when compared to the prior study. Interval developme nt of increased T2 and FLAIR signal within the deep white matter suggest change associated with whole brain radiation. Mild mass effect on the fourth ventricle with no midline shift or ventricular enla rgement noted. Results called to Dr. Urias at 1:30pm on 08/11/2017. CODE CR POS: [facility]
== END 2017-08-10 15:52 | disposition home or self-care (01) ==
LOC: MRI 15:51
PROVIDERS: ATTEND Radiology Radiation Oncology
DX: C79.31 Secondary malignant neoplasm of brain (principal); C34.11 Malignant neoplasm of upper lobe, right bronchus or lung
CPT/HCPCS: 70553